=== PATIENT | female | born 1935 | race Caucasian/White ===

== ENCOUNTER → 2020-12-26 | Outpatient (REF) | payer MEDICARE ==
[2020-12-26 17:39] LABS: BACTERIA, URINE AUTO 3+ (NEGATIVE); MUCUS, URINE SMALL (NEGATIVE); RBC, URINE AUTO 5 /HPF (0-3); SQUAMOUS EPITHELIAL CELL UR AU 0 /HPF (0-6); WBC, URINE AUTO TNTC /HPF (0-3)
== END ==
LOC: M SMT 16:49
PROVIDERS: ATTEND Specialist
DX: R30.0 Dysuria (principal)
CPT/HCPCS: 51798; 81015; 87088; 87186; G0463